=== PATIENT | female | born 1965 | race Caucasian/White ===

== ENCOUNTER → 2017-06-13 | Outpatient (CLI) | payer BC | LOC: MAMO 06-12 13:20 | DX: Z12.31 Encounter for screening mammogram for malignant neoplasm of breast (principal); J30.9 Allergic rhinitis, unspecified | CPT/HCPCS: G0202 ==

== ENCOUNTER 2021-01-20 19:14 | Emergency (ER) | payer BC ==
[~2021-01-20 19:14] MED LIST: 24 HOUR ALLERG9.9 ML; AZELASTINE137 MCG/0.; D3-200050 MCG PO; IBUPROFEN600 MG PO; LEVOCETIRIZINE D5 MG PO; MONTELUKAST SOD10 MG PO; NABUMETONE500 MG PO; PANTOPRAZOLE SO40 MG PO; PLAQUENIL 200200 MG PO; PROAIR HFA8.5 GM INH; PROZAC 20 MG CA20 MG PO; SYMBICORT 16010.2 GM INH; VITAMIN C500 M4 PO
[2021-01-20 19:45] LABS: HEMOGLOBIN 14.2 gm/dl (12.3-15.3); RED BLOOD COUNT 4.86 M/UL (4.00-5.10); WHITE BLOOD COUNT 12.9 K/UL (4.5-11.0)
[2021-01-20 20:11] LABS: BUN/CREATININE RATIO 17 (0-10)
[2021-01-20] MEDS ORDERED: OMNICEF 300 MG300 MG PO (21:35)
== END 2021-01-20 22:00 | disposition home or self-care (01) ==
LOC: ER1 19:14
PROVIDERS: Physician Assistant
DX: N39.0 Urinary tract infection, site not specified (principal); R09.1 Pleurisy; J45.909 Unspecified asthma, uncomplicated; Z90.49 Acquired absence of other specified parts of digestive tract; Z88.2 Allergy status to sulfonamides; Z87.39 Personal history of other diseases of the musculoskeletal system and connective tissue
CPT/HCPCS: 71045; 80053; 81001; 82550; 82553; 83874; 83880; 84484; 85025; 85379; 85610; 85730; 87086; 93005; 99285

== ENCOUNTER → 2021-04-14 | Outpatient (CLI) | payer BC ==
[~2021-04-14] MED LIST changes: +OMNICEF 300 MG300 MG PO
== END ==
LOC: LAB 13:14
DX: D89.89 Other specified disorders involving the immune mechanism, not elsewhere classified (principal); R76.0 Raised antibody titer; M25.50 Pain in unspecified joint
CPT/HCPCS: 36415

== ENCOUNTER → 2021-04-26 | Outpatient (CLI) | payer BC ==
[2021-04-26 16:59] LABS: HEMOGLOBIN 15.1 gm/dl (12.3-15.3); RED BLOOD COUNT 5.17 M/UL (4.00-5.10); WHITE BLOOD COUNT 8.5 K/UL (4.5-11.0)
[2021-04-26 17:13] LABS: BUN/CREATININE RATIO 13 (0-10)
[2021-04-28 08:14] LABS: COMPLEMENT C3, SERUM 178 mg/dL (82-167); COMPLEMENT C4, SERUM 23 mg/dL (12-38)
[2021-05-02 10:11] LABS: DSDNA CRITHIDIA LUCILIAE IFA Negative (Negative)
== END ==
LOC: LAB 14:56
PROVIDERS: Internal Medicine
DX: M35.00 Sjogren syndrome, unspecified (principal); M32.9 Systemic lupus erythematosus, unspecified
CPT/HCPCS: 36415; 80053; 81001; 82570; 82728; 84156; 85025; 86160; 86162; 86225; 86255

== ENCOUNTER → 2021-11-02 | Outpatient (CLI) | payer BC | LOC: EROP 14:37 | DX: U07.1 COVID-19 (principal); Z23 Encounter for immunization; M35.00 Sjogren syndrome, unspecified; M32.9 Systemic lupus erythematosus, unspecified | CPT/HCPCS: M0247; Q0247 ==

== ENCOUNTER → 2021-12-23 | Outpatient (CLI) | payer BC | LOC: KOH-I 14:29 | DX: S39.012A Strain of muscle, fascia and tendon of lower back, initial encounter (principal); X58.XXXA Exposure to other specified factors, initial encounter; M47.816 Spondylosis without myelopathy or radiculopathy, lumbar region; M47.817 Spondylosis without myelopathy or radiculopathy, lumbosacral region | CPT/HCPCS: 72100 ==